=== PATIENT | male | born 1975 | race Asian ===

== ENCOUNTER 2024-03-07 12:27 | Emergency (ER) | payer OTHER, SELFPAY ==
[2024-03-07 12:30] VITALS: BP 132/91
[2024-03-07 13:22] VITALS: BP 117/92
[2024-03-07 13:33] LABS: % Basophils 0.5 % (0-2); % Eosinophils 3.1 % (0-6); % Immature Granulocytes 0.2 % (0-0.5); % Lymphocytes 49.5 % (20.5-51.1); % Monocytes 8.9 % (1.7-9.3); % Neutrophils 37.8 % (42.2-75.2); Absolute Eosinophils 0.2 10^3/uL (0-0.7); Absolute Lymphocytes 3.2 10^3/uL (1.2-3.4); Absolute Monocytes 0.6 10^3/uL (0.1-0.6); Absolute Neutrophils 2.4 10^3/uL (1.4-6.5); Hematocrit 41.7 % (39.0-52.0); Hemoglobin 13.9 g/dL (13.0-18.0); Mean Corp Hgb Conc. 33.3 g/dL (33.0-37.0); Mean Corpuscular Hgb 28.8 pg (27.0-31.0); Mean Corpuscular Volume 86.5 fL (80.0-94.0); Mean Platelet Volume 9.7 fL (7.4-10.4); Nucleated Red Blood Cells % 0 % (-); Platelet Count 302 10^3/uL (130-400); Red Blood Cell Count 4.82 10^6/uL (4.70-6.10); Red Cell Dist. Width 12.4 % (11.5-14.5); White Blood Cell Count 6.4 10^3/uL (4.8-10.8)
--- NOTE | 2024-03-07 13:43 | ED.GENMED ---
History of Present Illness
General
Chief Complaint: Headache
Source: patient
Time Seen by Provider: 03/07/24 12:34
History of Present Illness
History of Present Illness:
48-year-old male with past medical history of hypothyroidism presenting to the emergency department for evaluation of pains throughout the left side of his body including facial pain, headache, arm pain, leg pain and also some left chest wall pain.
Patient states yesterday the symptoms started, checked his blood pressure and noticed that his blood pressure was a little bit elevated past normal around 140/90. Today patient's blood pressure normalized however he still had the symptoms so
decided to go to urgent care and upon getting to urgent care was recommended to come to the ER for further workup. Patient does state the jaw pain has been going on for little bit longer and believes his symptoms are related to TMJ. No other
symptoms presently. Family history is noted for father having either a heart attack or stroke sees patient overall unsure). Social history was unremarkable
Past History
Past History
ED Past Medical History: Hypothyroidism
ED Past Surgical History: None
Social History
Tobacco: Non-smoker
Alcohol: None
Drug: None
Personal:
Living: with family
Employment: Employed
Review of Systems
Review of Systems
All Other Systems: ROS reviewed and negative except as documented in HPI and ROS
Phy Exam
Physical Exam
Physical Exam:
GENERAL: Alert , in no apparent distress
HEAD: NCAT
EYE: pupils equal and reactive, 3mm b/l
NECK: Supple, no midline pain
ENT: o/p clr, mmm.
CARDIAC: Regular rate and rhythm .
LUNGS: Clear breath sounds bilaterally, no acute respiratory distress, no wheezes/rales/rhonchi
ABDOMEN: Soft, without focal tenderness, no r/g, no cvat
NEUROLOGICAL: Alert and oriented
SKIN: Warm and dry, skin intact.
MUSCULOSKELETAL: No edema, well perfused.
PSYCH: Normal and appropriate interaction.
Scores
Heart Failure Risk
Heart Failure Risk Score: Not Applicable
Heart Score for Chest Pain Patients
STEMI patient?: No
History: Slightly or Non-Suspicious
ECG: Normal
Age: >45 - <65 years
Risk Factors: No Risk Factors
Troponin: </= Normal Limit
Heart Score for Chest Pain Patients: 1
Heart Score Risk: 2.5% MACE over next 6 weeks
Withdrawal Assessment of Alcohol
Withdrawal Assessment Completed?: Not applicable
Course
Orders/Labs/Results
Orders:
Orders
03/07/24 12:46
CT Head W/o Iv Contrast Urgent
Comment:
Reason For Exam: headache
03/07/24 12:47
Electrocardiogram (*1) Urgent
Reason for Study: Chest Pain
EKG- Treatment ONCE
03/07/24 13:04
Basic Metabolic Panel Urgent
Complete Blood Count/With Diff Urgent
Lyme Progressive Urgent
TSH Urgent
Troponin I Urgent
Abnormal Lab Results
03/07/24
13:04
Neutrophils % 37.8 L %
(42.2-75.2)
03/07/24 13:04
03/07/24 13:04
Vital Signs
Initial and Last Documented VS:
Initial Vital Signs
Temp Pulse Resp BP Pulse Ox
97.6 F 55 20 132/91 98
03/07/24 12:30 03/07/24 12:30 03/07/24 12:30 03/07/24 12:30 03/07/24 12:30
Last Documented Vital Signs
Temp Pulse Resp BP Pulse Ox
97.6 F 52 15 118/86 98
03/07/24 12:30 03/07/24 14:15 03/07/24 14:15 03/07/24 14:00 03/07/24 14:15
MDM/Problems Addressed
Differential Diagnosis Includes:
radiculopathy, mass/malignancy, minimal concern for CVA, atypical ACS, lyme
MDM/Problems Addressed:
48-year-old male presenting to the ER for evaluation of left-sided body pain has been ongoing for the better part of the last few days, jaw pain ongoing for around few weeks. Physical exam reassuring. Patient in no acute distress and is otherwise
hemodynamically stable. Will check labs, head CT, EKG. Overall I am less suspicious for any acute emergent pathologies. Anticipate discharge home and outpatient follow-up.
*Radiology
Radiology exam reviewed: radiology read reviewed
*Pulse Oximetry
Patient hypoxic: no
*EKG
Heart Rate: 55
Rate: bradycardiac
Rhythm: sinus
[place]: normal axis
Ischemia: no ischemia
*Roll Weigher Interpretation
Rate: bradycardiac
Rhythm: sinus
*Critical Care Note
Total Time (30-74mins, 75-104mins- exclusive of procedures): Not Applicable
Patient Management
Social determinants of health affecting care: Living situation and Strong social support
Escalation/DeEscalation of care consider admission/obs:
Patient's workup unremarkable for any acute pathology. He remains hemodynamically stable. Advise close follow-up with primary care provider. Aware of return precautions to the ER.
ED Attending Note
-
Portions of this chart may have been created with voice recognition software.� Occasional wrong word or��sound alike� substitutions may have occurred due to the inherent limitations of voice recognition software.
Discharge Plan
Departure
Patient Disposition: Home (Routine Discharge)
Date of Disposition: 03/07/24
Time of Disposition: 14:26
Patient with high blood pressure during this ER visit?: No
Discharge Problem:
Headache, Radiculopathy
Instructions: Headache, Adult (DC)
Prescriptions:
No Action
levothyroxine 88 mcg Tablet
88 mcg PO DAILY
acetaminophen [Tylenol] 325 mg Tablet
650 mg PO Q6H PRN (Reason: pain)
multivitamin
1 tab PO DAILY
Referrals:
Davian Madrigal MD [Family Provider] -
Interventions
Interventions:
*Risk Screen - Suicide Last Done: 03/07/24 12:59
*General Assessment Last Done: 03/07/24 12:30
*Neglect/Abuse Screening Last Done: 03/07/24 12:59
ED- Fall Risk Assessment Last Done: 03/07/24 13:00
*ED COVID-19 Vaccine History Last Done: 03/07/24 12:59
*Nursing Disposition Last Done: 03/07/24 14:35
ED- Neurological Assessment Last Done: 03/07/24 13:01
Discharge Date and Time
Discharge Date/Time: 03/07/24 14:36
Print Language: TURKISH
[2024-03-07 13:52] LABS: Blood Urea Nitrogen 16 mg/dl (9-20); Calcium 9.6 mg/dl (8.4-10.2); Carbon Dioxide 28 mmol/L (22-30); Chloride 104 mmol/L (98-107); Glucose 85 mg/dl (70-99); Potassium 4.3 mmol/L (3.5-5.1); Sodium 143 mmol/L (135-145); eGFR > 60.00
[2024-03-07 14:00] VITALS: BP 118/86
[2024-03-07 14:03] LABS: Troponin I < 0.012 ng/ml
[2024-03-07 14:23] LABS: TSH 1.57 uIU/ml (0.47-4.68)
[2024-03-09 16:21] LABS: Lyme Antibody Screen, EIA Negative (Negative)
== END 2024-03-07 14:36 | disposition home or self-care (01) ==
LOC: EMR 12:27
PROVIDERS: Physician Assistant Medical; EMERGENCY PHYSICIAN Student in an Organized Health Care Education/Training Program; FAMILY PHYSICIAN Internal Medicine
DX: R51.9 Headache, unspecified (principal); M54.10 Radiculopathy, site unspecified; R07.89 Other chest pain; E03.9 Hypothyroidism, unspecified
CPT/HCPCS: 99284; 70450; 80048; 84443; 84484; 85025; 86618; 93005

== ENCOUNTER → 2024-07-01 09:54 | Outpatient (REF) | payer OTHER, SELFPAY | LOC: HWRAD 09:54 | PROVIDERS: ATTENDING PHYSICIAN Nurse Practitioner Family; FAMILY PHYSICIAN Internal Medicine | DX: R10.11 Right upper quadrant pain (principal) | CPT/HCPCS: 76700 ==

== ENCOUNTER 2024-12-15 03:22 | Emergency (ER) | payer OTHER, SELFPAY ==
[2024-12-15] VITALS (7 sets, daily range): BP systolic 104–142; BP diastolic 84–91; BMI 25.6
--- NOTE | 2024-12-15 05:26 | ED.GENMED ---
History of Present Illness
<Lisseth Begum DO, Resident - Last Filed: 12/16/24 15:02>
General
Chief Complaint: Headache
Source: patient
Exam Limitations: none
Time Seen by Provider: 12/15/24 04:57
Nursing documentation reviewed up to this point in time: agreed with
History of Present Illness
History of Present Illness:
Patient is a 48-year-old male past medical history of hypothyroidism presenting with headache. Patient was in his usual state of health until Saturday when he felt a migraine starting to occur. Patient has had migraines in the past, but has not
had one in over a year. Patient started with a left-sided headache, blurry vision and nausea, which felt like one of his normal migraines. Patient vomited once into took Tylenol with moderate relief. Patient still had a 'heavy' sensation on
Saturday. Patient went to work on Saturday morning, noticing that his migraine had worsened and was now associated with slurred speech. His colleagues did not notice any slurring of speech but he felt like he was not at 100%. Patient went home took
Tylenol and tried to sleep it off. Patient woke up for a meeting and felt better, ate dinner and tried to go back to sleep. Patient woke at 2:30 AM with worsening left-sided head pain, and new pain in his left shoulder, numbness and tingling in
his left hand and stiffness in his left leg. Patient took his blood pressure at this time and it was 145/100. Patient decided to come to the ED. Of note patient says he was swimming 10 days ago and 'may have bumped my head on the wall'. Patient
denies any pain, laceration, residual headaches from this incident. Patient currently rates his pain at 6 out of 10. Patient denies wanting Tylenol at this moment.
Past History
<Lisseth Begum DO, Resident - Last Filed: 12/16/24 15:02>
Past History
ED Past Medical History: Hypothyroidism
ED Past Surgical History: None
Social History
Tobacco: Non-smoker
Alcohol: None
Drug: None
Personal:
Living: with family
Employment: Employed
Review of Systems
<Lisseth Begum DO, Resident - Last Filed: 12/16/24 15:02>
Review of Systems
Allergies reviewed?: Yes
All Other Systems: ROS reviewed and negative except as documented in HPI and ROS
Constitutional: Reports no symptoms
EENT: Reports no symptoms
Respiratory: Reports no symptoms
ABD/GI: Reports nausea
: Reports no symptoms
Musculoskeletal: Reports other (Left hand numbness and tingling, left leg stiffness)
Skin: Reports no symptoms
Neurological: Reports headache (Left sided temporal frontal pain with tenderness to occiput on left side)
Endocrine: Reports no symptoms
Hematologic/Lymphatic: Reports no symptoms
Psychiatric: Reports no symptoms
Phy Exam
<Lisseth Begum DO, Resident - Last Filed: 12/16/24 15:02>
General Physical Exam
General Presentation: well appearing and no apparent distress
General age: appears stated age
General Skin: warm and dry
General Habitus: normal
General Mental: alert
General Hydration: appears well hydrated
Eye Exam
Eye Exam: PERRL and EOMI
Cardiovascular Exam
Cardiovascular Exam: regular rate/rhythm
Heart Sounds: normal
Pulmonary Exam
Pulmonary Exam: lungs clear, no respiratory distress, no crackles and no wheezing
Gastrointestinal Exam
Gastrointestinal Exam: normal bowel sounds, non tender, soft and non distended
Neurological Exam
Neurological Exam: alert, oriented x3, no motor deficits and speech normal
Musculoskeletal Exam
Musculoskeletal Exam: full ROM and other (Left shoulder and upper arm pain)
Skin Exam
Skin Exam: normal color and warm/dry
Psychiatric Exam
Psychiatric Exam: normal mood/affect
Scores
<Lisseth Begum DO, Resident - Last Filed: 12/16/24 15:02>
NIH Stroke Score
Level of Consciousness: 0 - Alert
LOC Questions: 0-Answers both correctly
LOC Commands: 0-Performs both correctly
Best Horizontal Gaze: 0-Normal
Visual Farr: 0=Normal, no visual loss
Facial Palsy: 0=Normal, symmetrical
Motor - Right Arm: 0=No drift 10 seconds
Motor - Left Arm: 0=No drift 10 seconds
Motor - Right Le-No drift 5 seconds
Motor - Left Le-No drift 5 seconds
Limb Ataxia: 0-Absent
Sensation: 0-Normal
Best Language: 0-No aphasia
Dysarthria: 0-Normal
Extinction and Inattention: 0-No abnormality
NIH Total Score:: 0
[place] Subarachnoid Hemorrhage
Age >/= 40: Yes
Neck Pain or Stiffness: No
Witnessed Loss of Consciousness: No
Onset During Exertion: No
Thunderclap Headache (instantly peaking pain): No
Limited Neck Flexion on Examination: No
Score: 1
Risk of Subarachnoid Hemorrhage: This patient can not be ruled out for SAH by this rule alone
<Araceli Wiggins MD - Last Filed: 12/15/24 08:38>
NIH Stroke Score
NIH Total Score:: 0
[place] Subarachnoid Hemorrhage
Score: 1
Risk of Subarachnoid Hemorrhage: This patient can not be ruled out for SAH by this rule alone
<Mason Crawford DO - Last Filed: 12/15/24 10:57>
NIH Stroke Score
NIH Total Score:: 0
[place] Subarachnoid Hemorrhage
Score: 1
Risk of Subarachnoid Hemorrhage: This patient can not be ruled out for SAH by this rule alone
Course
<Lisseth Begum DO, Resident - Last Filed: 12/16/24 15:02>
Orders/Labs/Results
Orders:
Orders
12/15/24 03:33
CT Head W/o Iv Contrast Urgent
Comment: numbness L arm, stiffness L leg
Reason For Exam: L sided headache
12/15/24 05:55
Electrocardiogram (*1) Urgent
Reason for Study: Other
Other Reason for Exam: new onset left shoulder pain radiating down arm
EKG- Treatment ONCE
12/15/24 06:20
CT Head & Neck Angio W/wo IV Urgent
Comment:
Reason For Exam: burns, tingling
12/15/24 06:54
Diphenhydramine [Benadryl] 25 mg IV NOW STA
Metoclopramide [Reglan] 10 mg IV NOW STA
12/15/24 07:32
Basic Metabolic Panel Urgent
12/15/24 07:32
Vital Signs
Initial and Last Documented VS:
Initial Vital Signs
Temp Pulse Resp BP Pulse Ox
97.7 F 51 14 142/91 97
12/15/24 03:25 12/15/24 03:25 12/15/24 03:25 12/15/24 03:25 12/15/24 03:25
Last Documented Vital Signs
Temp Pulse Resp BP Pulse Ox
97.7 F 60 16 108/86 98
12/15/24 03:25 12/15/24 10:30 12/15/24 10:30 12/15/24 10:00 12/15/24 08:30
<Araceli Wiggins MD - Last Filed: 12/15/24 08:38>
Orders/Labs/Results
Orders:
Orders
12/15/24 03:33
CT Head W/o Iv Contrast Urgent
Comment: numbness L arm, stiffness L leg
Reason For Exam: L sided headache
12/15/24 05:55
Electrocardiogram (*1) Urgent
Reason for Study: Other
Other Reason for Exam: new onset left shoulder pain radiating down arm
EKG- Treatment ONCE
12/15/24 06:20
CT Head & Neck Angio W/wo IV Urgent
Comment:
Reason For Exam: burns, tingling
12/15/24 06:54
Diphenhydramine [Benadryl] 25 mg IV NOW STA
Metoclopramide [Reglan] 10 mg IV NOW STA
12/15/24 07:32
Basic Metabolic Panel Urgent
12/15/24 07:32
Vital Signs
Initial and Last Documented VS:
Initial Vital Signs
Temp Pulse Resp BP Pulse Ox
97.7 F 51 14 142/91 97
12/15/24 03:25 12/15/24 03:25 12/15/24 03:25 12/15/24 03:25 12/15/24 03:25
Last Documented Vital Signs
Temp Pulse Resp BP Pulse Ox
97.7 F 60 16 108/86 98
12/15/24 03:25 12/15/24 10:30 12/15/24 10:30 12/15/24 10:00 12/15/24 08:30
<Mason Crawford, DO - Last Filed: 12/15/24 10:57>
Orders/Labs/Results
Orders:
Orders
12/15/24 03:33
CT Head W/o Iv Contrast Urgent
Comment: numbness L arm, stiffness L leg
Reason For Exam: L sided headache
12/15/24 05:55
Electrocardiogram (*1) Urgent
Reason for Study: Other
Other Reason for Exam: new onset left shoulder pain radiating down arm
EKG- Treatment ONCE
12/15/24 06:20
CT Head & Neck Angio W/wo IV Urgent
Comment:
Reason For Exam: burns, tingling
12/15/24 06:54
Diphenhydramine [Benadryl] 25 mg IV NOW STA
Metoclopramide [Reglan] 10 mg IV NOW STA
12/15/24 07:32
Basic Metabolic Panel Urgent
12/15/24 07:32
Vital Signs
Initial and Last Documented VS:
Initial Vital Signs
Temp Pulse Resp BP Pulse Ox
97.7 F 51 14 142/91 97
12/15/24 03:25 12/15/24 03:25 12/15/24 03:25 12/15/24 03:25 12/15/24 03:25
Last Documented Vital Signs
Temp Pulse Resp BP Pulse Ox
97.7 F 60 16 108/86 98
12/15/24 03:25 12/15/24 10:30 12/15/24 10:30 12/15/24 10:00 12/15/24 08:30
<Lisseth Begum DO, Resident - Last Filed: 12/16/24 15:02>
MDM/Problems Addressed
Differential Diagnosis Includes:
migraine
MDM/Problems Addressed:
No hemorrhage, herniation noted on CT head without contrast. Patient is not a candidate for TKA given the duration since the onset of symptoms 48 hours ago. Unlikely subarachnoid hemorrhage given lack of nuchal rigidity, no description of
thunderclap like headache, and length of intermittent waxing and waning symptoms.
Will order CTA of the head to assess for and rule out arterial dissections of the neck. Will also order EKG to assess for cardiac etiology.
7: 00 EKG shows sinus bradycardia.
<Lisseth Begum DO, Resident - Last Filed: 12/16/24 15:02>
*Pulse Oximetry
SaO2: 97
Oxygen Mode of Delivery: Room air
Patient hypoxic: no
<Mason Crawford DO - Last Filed: 12/15/24 10:57>
*Critical Care Note
Total Time (30-74mins, 75-104mins- exclusive of procedures): Not Applicable
<Mason Crawford DO - Last Filed: 12/15/24 10:57>
Update Note
Update Note:
I evaluated the patient at bedside. CTA head and neck unremarkable. Overall patient's symptoms have significantly improved and have essentially resolved by time of discharge.
ED Attending Note
<Lisseth Begum DO, Resident - Last Filed: 12/16/24 15:02>
-
Portions of this chart may have been created with voice recognition software.� Occasional wrong word or��sound alike� substitutions may have occurred due to the inherent limitations of voice recognition software.
<Araceli Wiggins MD - Last Filed: 12/15/24 08:38>
ED Attending Note
Patient seen and examined by attending physician: Yes
I performed a history and physical exam of patient and discussed management with resident, I reviewed resident's note and agree with documented findings and plan of care.: Yes
ED Attending Note:
48-year-old male presents the emergency department after developing the gradual onset of a headache on Saturday associated with short-lived blurry vision, nausea. He states this is very typical of a 'migraine' for him although he has not formally
been diagnosed with migraines he would typically develop this typical type of headache associated sometimes with vomiting. He states that he usually takes Tylenol, goes to sleep, and it is much better. Patient developed vomiting x 1 on Saturday,
took Tylenol and went to bed. He woke on Saturday and felt much better but still had what he describes as a 'slight' heavy headache across the bifrontal area. He took Tylenol and felt better although not completely resolved. When he woke on Saturday,
he again noted a mild headache and went to work. At that time, he was able to perform his duties and speak properly to other people, but he says he felt like his speech was slurred. His coworkers did not recognize this. He did not have aphasia or
other symptoms with this. He went home, took Tylenol and went to bed. He woke up, went back to work, and continued through his day. He ate dinner and went to bed. Then, he awoke at approximately 2:30 AM with again reporting a headache,
associated with a 'tingly' feeling in the left hand and shoulder and his left lower extremity felt 'stiff', although not weak. He did not feel off balance or have difficulty walking.. he checked his blood pressure and it was noted to be elevated
which prompted his visit here. He states that he feels much better now although headache still present, mild intensity. Neurological symptoms including tingling fully resolved.. Patient denies any double vision, difficulty walking, neck pain,
back pain chest pain, shortness of breath, abdominal pain, focal weakness, or other complaints. On exam, patient completely neurologically intact, NIH equal to 0, gait normal, visual farr intact, [id number] normal, motor 5 out of 5, sensory
intact, cranial nerves II through XII intact. No temporal artery tenderness to palpation. Noncontrast head CT read as unremarkable by vision. To complete his workup here in the ED, will get a CTA to rule out dissection although overall I think
very unlikely. Patient is obviously not a TNKase/IAT candidate given resolution of his symptoms. Is not clear if he truly had dysarthria given that all his coworkers did not appreciate this. I think this is very unlikely to be stroke/TIA, bleed,
dissection, etc. More likely to be a migraine with variance in regards to tingling.
Discharge Plan
Departure
Patient Disposition: Home (Routine Discharge)
Date of Disposition: 12/15/24
Time of Disposition: 10:37
Patient with high blood pressure during this ER visit?: Yes
Condition: Good
Discharge Problem:
Headache
Instructions: Headache, Adult (DC), BLOOD PRESSURE
Prescriptions:
No Action
levothyroxine 88 mcg Tablet
88 mcg PO DAILY
acetaminophen [Tylenol] 325 mg Tablet
650 mg PO Q6H PRN (Reason: pain)
multivitamin
1 tab PO DAILY
Referrals:
Davian Madrigal MD [Family Provider, Internal Medicine] - Follow up in 2-3 days
Activity Restrictions/Additional Instructions:
IF YOU DEVELOP INCREASING NEW OR PERSISTENT PAIN, NUMBNESS, TINGLING, WEAKNESS, CHANGE IN SPEECH, CHANGE IN VISION, CHANGE IN BALANCE, OR OTHER WORRISOME SIGNS, PLEASE RETURN TO THE ER IMMEDIATELY!
Interventions
Interventions:
*Risk Screen - Suicide Last Done: 12/15/24 03:25
*General Assessment Last Done: 12/15/24 04:47
*Neglect/Abuse Screening Last Done: 12/15/24 04:47
*ED- Fall Risk Assessment Last Done: 12/15/24 04:47
*ED COVID-19 Vaccine History Last Done: 12/15/24 04:47
*Nursing Disposition Last Done: 12/15/24 10:57
ED- Neurological Assessment Last Done: 12/15/24 08:04
Discharge Date and Time
Discharge Date/Time: 12/15/24 10:58
Print Language: NEPALI
[2024-12-15] MEDS: BENADRYL 25 MG IV (07:33)
[2024-12-15] MEDS: REGLAN 10 MG IV (07:34)
[2024-12-15 08:18] LABS: Blood Urea Nitrogen 10 mg/dl (9-20); Calcium 9.8 mg/dl (8.4-10.2); Carbon Dioxide 26 mmol/L (22-30); Chloride 107 mmol/L (98-107); Estimated Creatinine Clearance > 125 ml/min; Glucose 94 mg/dl (70-99); Potassium 4.7 mmol/L (3.5-5.1); Sodium 140 mmol/L (135-145); eGFR > 60.00
== END 2024-12-15 10:58 | disposition home or self-care (01) ==
LOC: EMR 03:22
PROVIDERS: Emergency Medicine; EMERGENCY PHYSICIAN Emergency Medicine; FAMILY PHYSICIAN Internal Medicine
DX: R51.9 Headache, unspecified (principal); E03.9 Hypothyroidism, unspecified
CPT/HCPCS: 99284; 96374; 96375; 70450; 70496; 70498; 80048; 93005; Q9967